=== PATIENT | female | born 1950 | race American Indian/Alaskan Native ===

== ENCOUNTER 2021-12-22 07:24 | Outpatient (CLI) | payer OTHER | END 2021-12-22 07:26 | disposition home or self-care (01) | LOC: RAD 07:24 | PROVIDERS: ATTEND Urology | DX: J45.901 Unspecified asthma with (acute) exacerbation (principal); N20.0 Calculus of kidney ==

== ENCOUNTER 2024-07-21 20:01 | Emergency (ER) | payer OTHER ==
[~2024-07-21] VITALS: Ht 162.6 cm; Wt 54.4 kg
[~2024-07-21 20:01] MED LIST: CRESTOR10 MG; DIGOXIN0.125 MG/2; ELIQUIS2.5 MG
[2024-07-21 21:21] LABS: HEMATOCRIT 38.1 % (36.0-45.00); HEMOGLOBIN 12.5 g/dL (12.0-15.00); MEAN CELL VOLUME 92.9 fL (80.00-100.00); MEAN CORPUSCULAR HEMOGLOBIN 30.4 pg (27.00-32.0); MEAN CORPUSCULAR HGB CONC 32.8 g/dl (32.0-36.0); RED CELL DISTRIBUTION WIDTH 14.8 % (11.5-14.5)
[2024-07-21 21:25] LABS: PLATELET COUNT 121 K/uL (150-450)
[2024-07-21 22:13] LABS: CALCIUM 8.7 mg/dL (8.5-10.1); CREATININE SERUM 0.63 mg/dL (0.55-1.02); GFR 92.37; POTASSIUM 4.28 mEq/L (3.5-5.1)
== END 2024-07-21 22:48 | disposition home or self-care (01) ==
LOC: ER 20:03
PROVIDERS: General Practice
DX: R53.81 Other malaise (principal); R51.9 Headache, unspecified; Z20.822 Contact with and (suspected) exposure to COVID-19; Z88.2 Allergy status to sulfonamides